=== PATIENT | female | born 1980 | race Caucasian/White ===

== ENCOUNTER 2018-12-29 21:08 | Emergency (ER) | payer OTHER ==
[~2018-12-29] VITALS: Ht 167.6 cm; Wt 68.0 kg
[2018-12-29 21:12] VITALS: BP 133/82
--- NOTE | 2018-12-29 21:16 | NUR ---
PT AMBULATORY TO ER LOBBY W/ STEADY GAIT IN STABLE CONDITION.
[2018-12-29 22:21] LABS: APPEARANCE,URINE HAZY (CLEAR); BILIRUBIN,URINE NEGATIVE (NEGATIVE); BLOOD, URINE NEGATIVE (NEGATIVE); COLOR,URINE YELLOW (YELLOW); LEUKOCYTE ESTERASE ,URINE NEGATIVE (NEGATIVE); NITRITE, URINE NEGATIVE (NEGATIVE); UGLUCOSE NEGATIVE (NEGATIVE)
--- NOTE | 2018-12-29 22:37 | NUR ---
PT TAKEN TO BED 5
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
--- NOTE | 2018-12-29 22:44 | NUR ---
Dr. Dai evaluating patient at bedside.
[2018-12-29] MEDS ORDERED: CYCLOBENZAPRINE 10 MG TAB PO ONE (22:50)
[2018-12-29] MEDS ORDERED: IBUPROFEN 800 MG TAB PO ONE (22:50)
--- NOTE | 2018-12-29 23:51 | NUR ---
PT RETURN FROM RADIOLOGY
--- NOTE | 2018-12-30 00:48 | NUR ---
PT RETURN FROM RADIOLOGY
[2018-12-30 01:20] VITALS: BP 127/77
--- NOTE | 2018-12-30 01:20 | NUR ---
Patient discharged with v/s stable. Written and verbal after care instructions given and explained. Patient alert, oriented and verbalized understanding of instructions. Ambulatory with steady gait. All questions addressed prior to discharge. ID band removed. Patient advised to follow up with PMD. Rx of Flexeril and Ibuprofen given. Patient educated on indication of medication including possible reaction and side effects. Opportunity to ask questions provided and answered.
== END 2018-12-30 01:20 | disposition home or self-care (01) ==
LOC: MED 21:08
DX: S39.012A Strain of muscle, fascia and tendon of lower back, initial encounter (principal); S20.211A Contusion of right front wall of thorax, initial encounter; E28.2 Polycystic ovarian syndrome; Z88.6 Allergy status to analgesic agent; Z88.8 Allergy status to other drugs, medicaments and biological substances; V49.59XA Passenger injured in collision with other motor vehicles in traffic accident, initial encounter; Y93.89 Activity, other specified; Y92.488 Other paved roadways as the place of occurrence of the external cause; Y99.8 Other external cause status
CPT/HCPCS: 71101; 72110; 81003; 81025; 99284

== ENCOUNTER 2019-11-09 13:08 | Emergency (ER) | payer MEDICAID, OTHER ==
[~2019-11-09] VITALS: Ht 163.8 cm; Wt 68.9 kg
[2019-11-09 13:23] VITALS: BP 135/74
--- NOTE | 2019-11-09 13:28 | NUR ---
PT TO BED 3 WITH STEADY GAIT
[2019-11-09] MEDS ORDERED: KETOROLAC 30 MG/ML VIAL IVP ONE (13:40)
--- NOTE | 2019-11-09 13:40 | NUR ---
C/O RT SIDED MID TO LOWER BACK PAIN RADIATING DOWN R LEG TO FOOT X 3 DAYS DIAGNOSED WITH UTI AND YEAST INFECTION X 4 DAYS AGO, FINISHED PRESCRIPTION LBM THIS MORNING, LOOSER THAN NORMAL BUT NOT LIQUID. DENIES BLOOD IN URINE OR UTI SYMPTOMS. STATES NAUSEA WITHOUT VOMITING. FELT "WARM" YESTERDAY, DID NOT CHECK TEMPERATURE. PAIN 7/10, SHOOTING, INTERMITTENT, WORSE WITH COUGHING. PT STATES COLD SYMPTOMS. PMH-POLYCYSTIC OVARIAN SYNDROME, ENDOMETROSIS
--- NOTE | 2019-11-09 13:53 | NUR ---
OBTAINED INFLUENZA SWAB AND URINE SAMPLE.
[2019-11-09 14:36] LABS: BASOPHILS % (AUTO) 0.5 % (0.0-2.0); EOSINOPHILS # (AUTO) 0.1 K/uL (0-0.4); EOSINOPHILS % (AUTO) 1.2 % (0.0-4.0); HEMATOCRIT 37.5 % (36-48); HEMOGLOBIN 12.5 g/dL (12.0-16.0); LYMPHOCYTES # (AUTO) 1.8 K/uL (2.5-16.5); LYMPHOCYTES % (AUTO) 27.5 % (20.5-51.1); MEAN CORPUSCULAR HEMOGLOBIN 30 pg (27-31); MEAN CORPUSCULAR HGB CONC 33 g/dL (33-37); MEAN CORPUSCULAR VOLUME 91.2 fL (80-94); MONOCYTES # (AUTO) 0.4 K/uL (0.8-1.0); MONOCYTES % (AUTO) 6.6 % (1.7-9.3); NEUTROPHILS # (AUTO) 4.1 K/uL (1.8-7.7); NEUTROPHILS % (AUTO) 64.2 % (42.2-75.2); PLATELET COUNT (AUTO) 278 K/uL (140-450); RED BLOOD CELL COUNT(AUTO) 4.11 MIL/uL (4.20-5.40); RED CELL DISTRIBUTION WIDTH 12.5 % (11.6-13.7); WHITE BLOOD COUNT (AUTO) 6.4 K/uL (4.8-10.8)
[2019-11-09 14:54] LABS: APPEARANCE,URINE CLEAR (CLEAR); BILIRUBIN,URINE NEGATIVE (NEGATIVE); BLOOD, URINE NEGATIVE (NEGATIVE); COLOR,URINE YELLOW (YELLOW); LEUKOCYTE ESTERASE ,URINE TRACE (NEGATIVE); NITRITE, URINE POSITIVE (NEGATIVE); UGLUCOSE NEGATIVE (NEGATIVE)
[2019-11-09 14:55] LABS: ANION GAP 11.2 (8-16); CARBON DIOXIDE 26.7 mmol/L (21-32); CREATININE 0.8 mg/dL (0.6-1.3); POTASSIUM 3.9 mmol/L (3.5-5.1)
[2019-11-09 15:02] LABS: ALBUMIN 3.9 g/dL (3.4-5.0); TOTAL BILIRUBIN 0.5 mg/dL (0.0-1.0)
[2019-11-09 15:03] LABS: RBC,URINE 0-5 /HPF (0-5)
[2019-11-09 15:42] VITALS: BP 135/74
--- NOTE | 2019-11-09 15:42 | NUR ---
Patient discharged with v/s stable. Written and verbal after care instructions given and explained regarding low back pain. Patient alert, oriented and verbalized understanding of instructions. Ambulatory with steady gait. All questions addressed prior to discharge. ID band removed. Patient advised to follow up with PMD. Rx of miralax and levaquin given. Patient educated on indication of medication including possible reaction and side effects. Opportunity to ask questions provided and answered.
== END 2019-11-09 15:42 | disposition home or self-care (01) ==
LOC: MED 13:08
DX: N39.0 Urinary tract infection, site not specified (principal); K59.00 Constipation, unspecified; Z88.6 Allergy status to analgesic agent; Z88.5 Allergy status to narcotic agent
CPT/HCPCS: 36415; 71046; 74176; 80053; 81001; 81025; 85025; 87086; 87804; 96374; 99284; J1885

== ENCOUNTER 2020-01-24 11:49 | Emergency (ER) | payer MEDICAID ==
[~2020-01-24] VITALS: Ht 167.6 cm; Wt 67.6 kg
[2020-01-24 11:55] VITALS: BP 110/84
--- NOTE | 2020-01-24 12:49 | NUR ---
39/F SEEN BY URGENT CARE FOR C/O Urgent Care for vision changes, dizziness and fatigue since December and it has been getting worse. Per pt she fainted/passed for 5 sec at Urgent Care and they referred her to come in.Med hx: Polycystic ovarian syndrome, asthma. PATIENT STATES PAIN OF 0/10 AT THIS TIME. PATIENT POSITIONED FOR COMFORT; HOB ELEVATED; BEDRAILS UP X1; BED DOWN. ER MD MADE AWARE OF PT STATUS.
--- NOTE | 2020-01-24 13:30 | NUR ---
LAB AT BEDSIDE.
[2020-01-24 13:40] LABS: BASOPHILS % (AUTO) 0.4 % (0.0-2.0); EOSINOPHILS # (AUTO) 0.1 K/uL (0-0.4); EOSINOPHILS % (AUTO) 1.5 % (0.0-4.0); HEMATOCRIT 41.9 % (36-48); HEMOGLOBIN 13.8 g/dL (12.0-16.0); LYMPHOCYTES # (AUTO) 1.8 K/uL (2.5-16.5); LYMPHOCYTES % (AUTO) 30.9 % (20.5-51.1); MEAN CORPUSCULAR HEMOGLOBIN 30 pg (27-31); MEAN CORPUSCULAR HGB CONC 33 g/dL (33-37); MEAN CORPUSCULAR VOLUME 91.4 fL (80-94); MONOCYTES # (AUTO) 0.5 K/uL (0.8-1.0); MONOCYTES % (AUTO) 8.8 % (1.7-9.3); NEUTROPHILS # (AUTO) 3.5 K/uL (1.8-7.7); NEUTROPHILS % (AUTO) 58.4 % (42.2-75.2); PLATELET COUNT (AUTO) 257 K/uL (140-450); RED BLOOD CELL COUNT(AUTO) 4.58 MIL/uL (4.20-5.40); WHITE BLOOD COUNT (AUTO) 5.9 K/uL (4.8-10.8)
[2020-01-24 13:51] LABS: BARBITURATE, URINE NEGATIVE ng/ml (NEG <=200); BENZODIAZEPINE, URINE NEGATIVE ng/mL (NEG <=200); CANNABINOID, URINE NEGATIVE ng/mL (NEG <=50); COCAINE, URINE NEGATIVE ng/mL (NEG <=300); OPIATE, URINE NEGATIVE ng/mL (NEG <=2000); PHENCYCLIDINE SCREEN,URINE NEGATIVE ng/mL (NEG <=25)
[2020-01-24 13:56] LABS: ALBUMIN 3.9 g/dL (3.4-5.0); ANION GAP 12.2 (8-16); CARBON DIOXIDE 28.1 mmol/L (21-32); CREATININE 0.8 mg/dL (0.6-1.3); POTASSIUM 4.3 mmol/L (3.5-5.1); TOTAL BILIRUBIN 0.5 mg/dL (0.0-1.0)
--- NOTE | 2020-01-24 14:31 | NUR ---
Patient being reevaluated by JOSE carr at bedside.
[2020-01-24] MEDS ORDERED: MECLIZINE 25 MG TAB PO ONE (15:00)
[2020-01-24 15:08] VITALS: BP 102/76
== END 2020-01-24 15:08 | disposition home or self-care (01) ==
LOC: MED 11:49
DX: R42 Dizziness and giddiness (principal); Z88.6 Allergy status to analgesic agent; Z88.5 Allergy status to narcotic agent
CPT/HCPCS: 36415; 70450; 80053; 80305; 81002; 81025; 85025; 99284; J8597

== ENCOUNTER 2022-08-22 08:40 | Emergency (ER) | payer MEDICAID, OTHER ==
[~2022-08-22] VITALS: Ht 167.6 cm; Wt 72.1 kg
[2022-08-22 08:48] VITALS: BP 139/76
[2022-08-22] MEDS ORDERED: ALBUTEROL SULFATE/IPRATROPIU 3 ML SOL IH ONE (09:25)
--- NOTE | 2022-08-22 09:59 | NUR ---
WALKED IN STEADY GAIT WITH CO INHALLING OF BLEECH [id number] IN 3 DAYS AGO. FEELING OF N/V AND IRRITATING. PT WAS A/OX4, SPEAKS FULL SENTENCES, FOLLOWS COMMAND, DENIES MORTENSEN AND DIZZINESS. PT WAS EXAMINED BY ED MD. RT WAS CALLED FOR BREATHING TX.
--- NOTE | 2022-08-22 10:01 | NUR ---
[facility] THERAPY AND RESPIRATORY DRUG GIVEN ORDERED ENCOURAGED PATIENT FOR DEEP BREATHING AND COUGH DURING THERAPY
--- NOTE | 2022-08-22 10:40 | NUR ---
[facility] WAS CALLED. INFO WAS UPDATED TO DON.
[2022-08-22] MEDS ORDERED: PRON INH (11:12)
[2022-08-22] MEDS ORDERED: PRED20TA5 PO (11:14)
[2022-08-22 11:22] VITALS: BP 134/75
--- NOTE | 2022-08-22 11:22 | NUR ---
Patient discharged with v/s stable. Written and verbal after care instructions given and explained. Patient alert, oriented and verbalized understanding of instructions. Ambulatory with steady gait. All questions addressed prior to discharge. ID band removed. Patient advised to follow up with PMD. Rx of PREDNISON AND ALBUTEROL given. Patient educated on indication of medication including possible reaction and side effects. Opportunity to ask questions provided and answered.
== END 2022-08-22 11:22 | disposition home or self-care (01) ==
LOC: MED 08:40
DX: T54.91XA Toxic effect of unspecified corrosive substance, accidental (unintentional), initial encounter (principal); Z79.899 Other long term (current) drug therapy; Z88.5 Allergy status to narcotic agent; Z88.6 Allergy status to analgesic agent; Y92.89 Other specified places as the place of occurrence of the external cause
CPT/HCPCS: 71045; 94640; 99283; Q0092

== ENCOUNTER 2022-09-23 11:32 | Emergency (ER) | payer MEDICAID ==
[~2022-09-23] VITALS: Ht 170.2 cm; Wt 72.6 kg
[~2022-09-23 11:32] MED LIST: PRED20TA5 PO; PRON INH
[2022-09-23 12:21] VITALS: BP 105/85
[2022-09-23] MEDS ORDERED: ONDANSETRON 4 MG ODT PO ONE (12:45)
[2022-09-23] MEDS ORDERED: ALUMINUM HYD/MAG/SIMETHICONE 30 ML UDC PO ONE (12:45)
--- NOTE | 2022-09-23 13:21 | NUR ---
41/F PRESENTS TO ED WITH C/O RIGHT RUQ PAIN X2 WEEKS, STATES SHE HAS BEEN SEEN AT URGENT CARE TWICE FOR SYMPTOMS AND TODAY WAS REFERRED TO ED FOR FURTHER EVALUATION. PATIENT STATES 7/10 DULL PAIN AND BLOATING, DENIES TAKING MEDS FOR PAIN AT HOME. STATES SOME EPISODES OF NAUSEA, DENIES V/D, FEVERS, CHILLS.
[2022-09-23 13:36] LABS: BASOPHILS # (AUTO) 0.1 K/uL (0.00-0.22); BASOPHILS % (AUTO) 0.6 % (0.0-2.0); EOSINOPHILS # (AUTO) 0.1 K/uL (0-0.4); EOSINOPHILS % (AUTO) 1.5 % (0.0-4.0); HEMATOCRIT 41.4 % (36-48); LYMPHOCYTES # (AUTO) 2.4 K/uL (2.5-16.5); MEAN CORPUSCULAR HEMOGLOBIN 30 pg (27-31); MEAN CORPUSCULAR HGB CONC 34 g/dL (33-37); MEAN CORPUSCULAR VOLUME 89.5 fL (80-94); MONOCYTES # (AUTO) 0.5 K/uL (0.8-1.0); MONOCYTES % (AUTO) 5.4 % (1.7-9.3); NEUTROPHILS # (AUTO) 5.6 K/uL (1.8-7.7); NEUTROPHILS % (AUTO) 64.5 % (42.2-75.2); PLATELET COUNT (AUTO) 328 K/uL (140-450); RED BLOOD CELL COUNT(AUTO) 4.62 MIL/uL (4.20-5.40); RED CELL DISTRIBUTION WIDTH 12.8 % (11.6-13.7); WHITE BLOOD COUNT (AUTO) 8.6 K/uL (4.8-10.8)
[2022-09-23 14:04] LABS: ALBUMIN 4.1 g/dL (3.4-5.0); ANION GAP 15.7 (8-16); CARBON DIOXIDE 25.2 mmol/L (21-32); CREATININE 0.9 mg/dL (0.6-1.3); POTASSIUM 3.9 mmol/L (3.5-5.1); TOTAL BILIRUBIN 0.5 mg/dL (0.0-1.0)
[2022-09-23] MEDS ORDERED: FAMO-90 PO (14:41)
[2022-09-23] MEDS ORDERED: BEN10 PO (14:41)
[2022-09-23] MEDS ORDERED: ONDA-188 PO (14:41)
--- NOTE | 2022-09-23 15:00 | NUR ---
Patient discharged with v/s stable. Written and verbal after care instructions ABOUT GASTRITIS given and explained. Patient alert, oriented and verbalized understanding of instructions. Ambulatory with steady gait. All questions addressed prior to discharge. ID band removed. Patient advised to follow up with PMD. Rx of BENTYL, PEPCID, AND ZOFRAN given. Patient educated on indication of medication including possible reaction and side effects. Opportunity to ask questions provided and answered.
== END 2022-09-23 15:00 | disposition home or self-care (01) ==
LOC: MED 11:32
DX: R10.11 Right upper quadrant pain (principal); Z20.822 Contact with and (suspected) exposure to COVID-19; R05.9 Cough, unspecified; R11.0 Nausea; Z88.5 Allergy status to narcotic agent; Z88.6 Allergy status to analgesic agent; Z79.899 Other long term (current) drug therapy
CPT/HCPCS: 36415; 71045; 76705; 80053; 81002; 81025; 83690; 85025; 87426; 87804; 99285; Q0092; Q0162

== ENCOUNTER 2023-08-12 18:12 | Emergency (ER) | payer MEDICAID ==
[~2023-08-12] VITALS: Ht 167.6 cm; Wt 66.2 kg
[~2023-08-12 18:12] MED LIST changes: +BEN10 PO; +FAMO-90 PO; +ONDA-188 PO
[2023-08-12 18:39] VITALS: BP 122/82; PULSE 98; RESP 20; TEMP 98.2; O2SAT 100
[2023-08-12] MEDS ORDERED: BENZ200C4 PO (19:33)
[2023-08-12] MEDS ORDERED: PRED20TA5 PO (19:33)
[2023-08-12] MEDS ORDERED: ALBU0.0912 IH (19:33)
[2023-08-12 19:59] VITALS: BP 122/82; PULSE 98; RESP 20; TEMP 98.2; O2SAT 100
== END 2023-08-12 19:59 | disposition home or self-care (01) ==
LOC: MED 18:12
DX: J20.9 Acute bronchitis, unspecified (principal); E11.9 Type 2 diabetes mellitus without complications; Z79.899 Other long term (current) drug therapy; Z88.8 Allergy status to other drugs, medicaments and biological substances; Z88.5 Allergy status to narcotic agent
CPT/HCPCS: 71045; 99283

== ENCOUNTER 2024-01-05 16:04 | Emergency (ER) | payer MEDICAID ==
[~2024-01-05] VITALS: Ht 172.7 cm; Wt 67.4 kg
[~2024-01-05 16:04] MED LIST changes: +ALBU0.0912 IH; +BENZ200C4 PO
[2024-01-05 16:22] VITALS: BP 116/79; PULSE 84; RESP 16; TEMP 98.5; O2SAT 99
[2024-01-05 16:44] VITALS: BP 116/79; PULSE 84; RESP 16; TEMP 98.5; O2SAT 99
[2024-01-05] MEDS: IBUPROFEN 600 MG TAB PO ONE (17:25)
[2024-01-05] MEDS ORDERED: IBUP-2213 PO (20:18)
[2024-01-05] MEDS ORDERED: CEPH-588 PO (20:18)
== END 2024-01-05 20:27 | disposition home or self-care (01) ==
LOC: MED 16:04
DX: I73.00 Raynaud's syndrome without gangrene (principal); R23.0 Cyanosis; M79.604 Pain in right leg; M79.605 Pain in left leg; E11.9 Type 2 diabetes mellitus without complications; Z79.899 Other long term (current) drug therapy; Z88.5 Allergy status to narcotic agent; Z88.6 Allergy status to analgesic agent
CPT/HCPCS: 93925; 99284